=== PATIENT | male | born 1960 | race Caucasian/White ===

== ENCOUNTER 2020-02-04 13:17 | Emergency (ER) | payer BC ==
[2020-02-04] MEDS ORDERED: Lidocaine 1% w/Epinephrine 1:100K 20 ML VIAL ONE (13:32)
--- NOTE | 2020-02-04 14:28 | RAD ---
LEFT HAND: 02/04/20 Three views. HISTORY: Injury. There has been amputation at the distal fourth finger. There has been amputation of the tuft of the distal phalanx along with the distal soft tissues. No other osseous abnormality. IMPRESSION: Amputation distal fourth digit. POS: [id number]
[2020-02-04] MEDS ORDERED: Acetaminophen 500 MG TAB ONE (14:42)
[2020-02-04] MEDS ORDERED: Amoxicillin/Potassium Clav 875 MG TAB ONE (14:42)
== END 2020-02-04 14:53 | disposition home or self-care (01) ==
LOC: MADERS 13:17
DX: S68.125A Partial traumatic metacarpophalangeal amputation of left ring finger, initial encounter (principal); E11.9 Type 2 diabetes mellitus without complications; I10 Essential (primary) hypertension; Z79.899 Other long term (current) drug therapy; W23.0XXA Caught, crushed, jammed, or pinched between moving objects, initial encounter
CPT/HCPCS: 12041